=== PATIENT | male | born 1970 | race Caucasian/White ===

== ENCOUNTER 2018-06-27 17:07 | Inpatient (IN) | payer SELFPAY ==
[2018-06-27 17:33] LABS: #Basophils 0.1 thou/uL (0.0-0.2); #Eosinphils 0.2 thou/uL (0.0-0.7); #Lymphocytes 3.2 thou/uL (1.20-3.40); #Monocytes 0.6 thou/uL (0.11-0.59); #Neutrophils 6.1 thou/uL (1.40-6.50); %Eosinophils 2.2 % (0.0-10.0); %Lymphocytes 31.3 % (21.0-51.0); %Monocytes 5.6 % (0.0-10.0); %Neutrophils 59.9 % (42.0-75.0); Hemoglobin 16.1 g/dL (14.0-18.0); Mean Corpuscular HGB CONC 33.3 g/dL (32.0-36.0); Mean Corpuscular Hemoglobin 29.3 pg (27.0-31.0); Mean Corpuscular Volume 88.1 fL (78.0-98.0); Mean Platelet Volume 7.8 fL (7.4-10.4); Platelet Count 321 thou/uL (130-400); RBC Distribution Width 12.3 % (11.5-14.5); Red Blood Cell (RBC) Count 5.51 mill/uL (4.70-6.10); White Blood Cell (WBC) Count 10.2 thou/uL (4.8-10.8)
[2018-06-27 17:38] LABS: PTT 25.6 SEC (22.9-36.1)
[2018-06-27 17:48] LABS: ALT (SGPT) 22 U/L (8-55); AST (SGOT) 22 U/L (5-34); Albumin 3.8 g/dL (3.5-5.0); Alkaline Phosphatase 110 U/L (40-150); Anion Gap 11 mmol/L (10-20); BUN (Urea Nitrogen) 14 mg/dL (8.9-20.6); Bilirubin, Total 0.4 mg/dL (0.2-1.2); CK (CPK) 173 U/L (30-200); Calc. Creatinine Clearance 0 mL/min (70-130); Calcium 9.2 mg/dL (7.8-10.44); Carbon Dioxide 26 mmol/L (22-29); Chloride 104 mmol/L (98-107); Estimated GFR-MDRD 66; Globulin 2.9 g/dL (2.4-3.5); Glucose 190 mg/dL (70-105); Magnesium 1.9 mg/dL (1.6-2.6); Protein, Total 6.7 g/dL (6.0-8.3); Sodium 137 mmol/L (136-145)
--- NOTE | 2018-06-27 18:03 | CT ---
HEAD CT WITHOUT CONTRAST: Comparison: 08-07-05 History: Left leg weakness last night, starting at 1830 hours. Currently, the patient has a drift. Technique: Noncontrast head CT was performed from skull base to skull vertex. FINDINGS: No parenchymal hemorrhage. No extraaxial hematoma. No midline shift. The basilar cisterns are patent. Brain volume is age appropriate. Cortical krishnamurthy white matter differentiation is preserved. Ventricles and sulci are patent and symmetric. Calvarium is intact. Adequate aeration of the sinuses and mastoid air cells. IMPRESSION: No acute intracranial process. Results of study discussed with Dr. Daniels 06-27-18 at 5:23 p.m. POS: [facility]
[2018-06-27] MEDS ORDERED: Acetaminophen 325 MG TAB PO PRN (18:24)
[2018-06-27] MEDS ORDERED: Bisacodyl 5 MG TAB PO PRN ×2 (18:24→23:03)
[2018-06-27] MEDS ORDERED: Senokot S 8.6-50 MG TAB PO PRN ×2 (18:24→23:04)
[2018-06-27 19:32] LABS: Bilirubin Negative (Negative); Blood, Urine Negative (Negative); Clarity CLEAR (Clear); Glucose, Urine (Dipstick) Negative (Negative); Leukocyte Negative (Negative); Nitrite Negative (Negative); Protein, Urine (Dipstick) Negative (Neg-Trace); Specific Gravity, Urine 1.005 (1.002-1.036); Urobilinogen 0.2 mg/dL (0.2-1.0)
[2018-06-27] MEDS ORDERED: Dextrose 5% in Water 1,000 ML IV PRN ×2 (19:38→23:04)
[2018-06-27] MEDS ORDERED: HumaLOG 300 UNITS/3 ML VIAL SC PRN (19:38)
[2018-06-27] MEDS ORDERED: Dextrose 50% Abboject 50 ML SYRINGE SLOW IVP PRN ×2 (19:38→23:04)
[2018-06-27] MEDS ORDERED: Atorvastatin Calcium 40 MG TAB PO SCH ×2 (21:00→23:15)
[2018-06-27] MEDS ORDERED: ALPRAZolam 0.5 MG TAB PO PRN ×2 (21:23→23:04)
[2018-06-27] MEDS: HumaLOG 300 UNITS/3 ML VIAL SC PRN (23:11)
--- NOTE | 2018-06-27 23:52 | HP ---
CHIEF COMPLAINT: Left-sided weakness. HISTORY OF PRESENT ILLNESS: The patient is a 48-year-old, who is a type 1 diabetic, has a history of hypertension, who presents to the hospital with left-sided weakness that started at 6:30 yesterday. The patient stated that he was at his girlfriend's house when he kind of started noticing his left lower extremity heaviness and while he was driving, he started having left upper extremity heaviness. The patient stated that he got home, had difficulty getting into his home and initially thought that the left-sided weakness was most likely musculoskeletal versus a pinched nerve, so he did not really do anything about it. The patient stated that his left-sided heaviness and weakness progressed, so he came into the ER for further evaluation. The patient denies any fevers or chills, any nausea, vomiting, or diarrhea. The patient's mother was at the bedside, stated that she spoke with him at 11:30 last night. According to her, his speech was fine. The patient stated that he came into the ER for further evaluation today. PAST MEDICAL HISTORY: Diabetes type 1, hypertension, and some mild hyperlipidemia. SOCIAL HISTORY: He denies any alcohol use, drug use. He has secondhand smoking exposure. He is a full code. Lives alone. FAMILY HISTORY: Mother has heart problems. Father also had heart problems, who . PAST SURGICAL HISTORY: He has had a hernia repair. MEDICATIONS: The patient does not currently know his medication list. ALLERGIES: HE HAS NO KNOWN DRUG ALLERGIES. REVIEW OF SYSTEMS: All negative except for the ones mentioned above in the HPI. PHYSICAL EXAMINATION: VITAL SIGNS: Vital signs are the following; blood pressure 170/80. His temperature is 98.1. His heart rate is 80, respirations 18, and 99% on room air. GENERAL: He is awake, alert, and oriented x3. Does not appear to be in any distress. CV: S1 and S2 present. No murmurs, rubs, or gallops. LUNGS: Clear to auscultation. No rhonchi or wheezes noted. HEENT: He does have missing teeth. Normocephalic, atraumatic. NECK: No lymphadenopathy noted. ABDOMEN: Soft and nontender. Bowel sounds present x2. EXTREMITIES: No edema. Pedal pulses are present x2. NEUROLOGIC: He has significant weakness of the left upper extremity and left lower extremity. Sensation is intact to bilateral upper and bilateral lower. [id number] is intact on the right hand. The patient is unable to do it from the left. [id number], again he is able to move his right lower extremity, but is unable to move the left lower extremity. SKIN: No cuts, lesions, or bruises noted. LABORATORY WORK: As of the following; WBC of 10.2, hemoglobin of 16.1, hematocrit of 48.5, and platelets of 321. Chemistry; sodium of 137, potassium of 4.0, BUN of 14, creatinine of 1.17, glucose of 190. Troponin x1 is negative. TSH is 0.493. Urine is normal. EKG; no significant changes. ASSESSMENT AND PLAN: The patient is a very pleasant 48-year-old male, who presents to the hospital with left-sided weakness. 1. Stroke/transient ischemic attack. The patient has significant left-sided weakness. His CT initially did not indicate any acute abnormalities. We will get MRI brain, also we will get carotid Dopplers and echocardiogram and we will get Neurology consult. The patient does take 325 of aspirin. We will put him on Plavix 75, also put him on a statin and also check his cholesterol level in the morning. 2. Diabetes. He is a type 1 diabetic. We will check sliding-scale insulin before meals and at bedtime and also put him on sliding scale. We will continue his home medications. 3. Hypertension. I will not be aggressive with his high blood pressure given his recent weakness and stroke. Job ID: [id number]
[2018-06-28] MEDS ORDERED: Pregabalin 50 MG CAP PO SCH ×4 (03:30→09:00)
[2018-06-28] MEDS: HumaLOG 300 UNITS/3 ML VIAL SC PRN ×4 (06:19→21:27)
[2018-06-28] MEDS: Acetaminophen 325 MG TAB PO PRN ×2 (08:01→16:27)
[2018-06-28] MEDS: Enoxaparin Sodium 40 MG/0.4 ML SYRINGE SC SCH (08:02)
[2018-06-28] MEDS: Aspirin 325 mg Enteric Coated Tablet PO SCH (08:03)
[2018-06-28] MEDS ORDERED: Enoxaparin Sodium 40 MG/0.4 ML SYRINGE SC SCH (09:00)
[2018-06-28] MEDS ORDERED: Aspirin 325 mg Enteric Coated Tablet PO SCH (09:00)
[2018-06-28] MEDS ORDERED: Insulin Glargine 10 UNITS in Pre-Filled Syringe 1 EACH SC SCH (09:00)
--- NOTE | 2018-06-28 11:22 | CON ---
DATE OF CONSULTATION: 06/28/2018 CONSULTING PHYSICIAN: Hospitalist Service. IMPRESSION: 1. Probable small vessel stroke with left-sided weakness. 2. Diabetes. 3. Hypertension. 4. Aspirin failure. PLAN: 1. Add Plavix. 2. Add a statin. 3. Carotid ultrasound. 4. Echocardiogram. 5. Probable outpatient therapy given his lack of funding. HISTORY OF PRESENT ILLNESS: Mr. Layne is a 48-year-old man, who reports developing left-sided weakness 2 days ago. He did not seek medical attention right away. He subsequently presented to the emergency room yesterday. He had a CT scan of the brain done, which did not reveal any evidence of any acute ischemic changes. His laboratory studies were unremarkable other than elevated blood glucose. He denies any tobacco use. PAST MEDICAL HISTORY: As listed above. ALLERGIES: NONE REPORTED. SOCIAL HISTORY: No tobacco or alcohol use. FAMILY HISTORY: Noncontributory. MEDICATION LIST: Reviewed. REVIEW OF SYSTEMS: Negative for headache, nausea, vomiting, vertigo, double vision, blurred vision, lateralized numbness, chest pain, or shortness of breath. Positive for tingling in his feet. PHYSICAL EXAMINATION: VITAL SIGNS: Blood pressure 142/83, pulse 78, respirations 16, and temperature 98. HEENT: Pupils are equal and reactive. Conjunctivae clear. Oropharynx clear. NECK: Supple. No lymphadenopathy. EXTREMITIES: No cyanosis, clubbing, or edema. NEUROLOGIC: He was alert and cooperative. Speech is fluent and clear. Cranial nerve exam showed a subtle left facial flattening. Sensation was intact bilaterally. Motor exam showed only partial antigravity strength in the left arm and leg. Distal movement was more impaired with minimal hand movement. Sensation was intact to light touch. Plantar response was upgoing on the left, downgoing on the right. Gait was not tested. No abnormal movements were seen. LABORATORY DATA: EKG shows a sinus rhythm. Laboratory studies were as noted above. SUMMARY: This is a middle-aged man, who presents with weakness on the left side without sensory deficits suggestive of a small vessel stroke. I would advance his antiplatelet therapy and add a statin. Hopefully, he will make a quick recovery. Job ID: [id number]
[2018-06-28] MEDS ORDERED: Dextrose 5% in Water 1,000 ML IV PRN (11:58)
[2018-06-28] MEDS ORDERED: Dextrose 50% Abboject 50 ML SYRINGE IVP PRN (11:58)
--- NOTE | 2018-06-28 12:01 | MRI ---
MRI BRAIN WITHOUT CONTRAST: HISTORY: Left leg weakness. CVA. COMPARISON: None. TECHNIQUE: Brain MRI is performed without intravenous Gadolinium administration. Multisequential, multiplanar i maging is performed. FINDINGS: No hemorrhage on the axial gradient echo sequence. Calvarium has a normal T1 marrow signal intensity. Midline brain parenchymal structures are unremark able. Central arterial flow voids are maintained. There is a small focus of restricted diffusion in volving the lateral aspect of the right thalamus and posterior limb of the right internal capsule. T here is associated t2 and STIR hyperintensity. No additional areas of restricted diffusion. No parenchymal mass, mass effect, or midline shift. Brain volume, slightly less than expected for pa tient's age. Cortical krishnamurthy-white matter differentiation is preserved. T2 and FLAIR white matter hyperintensities due to chronic small-vessel ischemic changes are noted. Adequate aeration of the sinuses and mastoid air cells. IMPRESSION: Small infarct involving the posterior limb of the right internal capsule and the lateral aspect of th e right thalamus. POS: [facility]
--- NOTE | 2018-06-28 20:59 | PDOC.PN ---
- Subjective Encounter Start Date: 06/28/18 Encounter Start Time: 10:15 Subjective: pt up in bed still has left side weakness - Objective Resuscitation Status - Order Detail: 06/27/18 18:24 Resuscitation Status Routine Resuscitation Status: FULL: Full Resuscitation Vital Signs & Weight: Vital Signs (12 hours) Temp Pulse Pulse Pulse Resp BP BP 06/28/18 16:00 97.9 F 78 14 06/28/18 12:00 98.4 F 88 18 06/28/18 09:38 90 90 137/98 H 147/85 H 06/28/18 09:25 90 85 137/98 H 139/85 BP Pulse Ox 06/28/18 16:00 157/86 H 95 06/28/18 12:00 148/97 H 95 06/28/18 09:38 06/28/18 09:25 Weight Weight 194 lb 8 oz I&O: 06/27/18 06/28/18 06/29/18 06:59 06:59 06:59 Intake Total 1313 Balance 1313 Result Diagrams: 06/27/18 17:23 06/27/18 17:23 Additional Labs: Accuchecks 06/28/18 06/28/18 06/28/18 16:42 10:37 05:51 POC Glucose 286 H 297 H 269 H 06/27/18 06/27/18 21:53 17:17 POC Glucose 322 H 181 H Phys Exam - Physical Examination Respiratory: no wheezing, no rales, no rhonchi, wheezing present, clear to auscultation bilateral Cardiovascular: RRR, no significant murmur, no rub, gallop, irregular Gastrointestinal: soft, non-tender, no distention, positive bowel sounds Musculoskeletal: no edema, pulses present, edema present left sided weakness Dx/Plan (1) Stroke Code(s): I63.9 - CEREBRAL INFARCTION, UNSPECIFIED Status: Acute (2) Diabetes Code(s): E11.9 - TYPE 2 DIABETES MELLITUS WITHOUT COMPLICATIONS Status: Acute - Plan will continue asa/statin -: will continue his insulin -: mri pending -: pt/ot eval * . Review of Systems - Review of Systems Respiratory: negative: Cough, Dry, Shortness of Breath, Hemoptysis, SOB with Excertion, Pleuritic Pain, Sputum, Wheezing Cardiovascular: negative: chest pain, palpitations, orthopnea, paroxysmal nocturnal dyspnea, edema, light headedness, other Gastrointestinal: negative: Nausea, Vomiting, Abdominal Pain, Diarrhea, Constipation, Melena, Hematochezia, Other - Medications/Allergies Allergies/Adverse Reactions: Allergies Allergy/AdvReac Type Severity Reaction Status Date / Time No Known Allergies Allergy Verified 06/27/18 22:16 Medications: Current Medications Acetaminophen (Tylenol) 650 mg PO Q4H PRN PRN Reason: Headache/Fever/Mild Pain (1-3) Last Admin: 06/28/18 16:27 Dose: 650 mg Alprazolam (Xanax) 0.5 mg PO BIDPRN PRN PRN Reason: Anxiety Last Admin: 06/27/18 23:11 Dose: 0.5 mg Aspirin (Ecotrin) 325 mg PO DAILY [facility] Last Admin: 06/28/18 08:03 Dose: 325 mg Atorvastatin Calcium (Lipitor) 40 mg PO HS [facility] Bisacodyl (Dulcolax) 10 mg PO DAILYPRN PRN PRN Reason: Constipation Bupropion HCl (Wellbutrin) 100 mg PO BID [facility] Dextrose/Water (Dextrose 50%) 25 gm IVP PRN PRN PRN Reason: HYPOGLYCEMIA PROTOCOL Enoxaparin Sodium (Lovenox) 40 mg SC 0900 [facility] Last Admin: 06/28/18 08:02 Dose: 40 mg Glucagon (Glucagon) 1 mg IM PRN PRN PRN Reason: HYPOGLYCEMIA PROTOCOL Insulin Glargine 25 units/ (Miscellaneous Medication) 0.25 mls @ 0 mls/hr SC HS [facility] Insulin Glargine 25 units/ (Miscellaneous Medication) 0.25 mls @ 0 mls/hr SC QAM [facility] Dextrose/Water (D5w) 1,000 mls @ 0 mls/hr IV INF PRN PRN Reason: HYPOGLYCEMIA PROTOCOL Insulin Human Lispro (Humalog) 0 units SC .MODERATE SLIDING SC PRN; Protocol PRN Reason: MODERATE SLIDING SCALE Last Admin: 06/28/18 19:02 Dose: 6 unit Lisinopril (Zestril) 10 mg PO DAILY [facility] Pneumococcal Polyvalent Vaccine (Pneumovax 23) 0.5 ml IM .ONCE ONE Stop: 06/29/18 09:01 Pregabalin (Lyrica) 100 mg PO BID [facility] Senna/Docusate Sodium (Senokot S) 2 tab PO BIDPRN PRN PRN Reason: Constipation Sodium Chloride (Flush - Normal Saline) 10 ml IVF PRN PRN PRN Reason: Saline Flush
[2018-06-28] MEDS ORDERED: Insulin Glargine 25 UNITS in Pre-Filled Syringe 1 EACH SC SCH (21:00)
[2018-06-28] MEDS ORDERED: Atorvastatin Calcium 40 MG TAB PO SCH (21:00)
[2018-06-28] MEDS: Pregabalin 50 MG CAP PO SCH (21:20)
[2018-06-28] MEDS: buPROPion HCl 100 MG TAB PO SCH (21:21)
[2018-06-29] MEDS ORDERED: Lisinopril 10 MG TAB PO SCH (09:00)
[2018-06-29] MEDS ORDERED: Insulin Glargine 25 UNITS in Pre-Filled Syringe 1 EACH SC SCH (09:00)
[2018-06-29] MEDS: Acetaminophen 325 MG TAB PO PRN (09:07)
[2018-06-29] MEDS: buPROPion HCl 100 MG TAB PO SCH (09:08)
[2018-06-29] MEDS: Pregabalin 50 MG CAP PO SCH (09:08)
[2018-06-29] MEDS: Aspirin 325 mg Enteric Coated Tablet PO SCH (09:09)
[2018-06-29] MEDS: Enoxaparin Sodium 40 MG/0.4 ML SYRINGE SC SCH (09:10)
[2018-06-29] MEDS ORDERED: HumaLOG 300 UNITS/3 ML VIAL SC PRN (11:45)
[2018-06-29 11:54] VITALS: BP 122/75; TEMP 97.8
--- NOTE | 2018-06-29 13:39 | PDOC.PN ---
- Subjective Encounter Start Date: 06/29/18 Encounter Start Time: 13:37 Patient seen and examined, no new issues or complaints, no family at bedside, all questions answered. - Objective Resuscitation Status - Order Detail: 06/27/18 18:24 Resuscitation Status Routine Resuscitation Status: FULL: Full Resuscitation Vital Signs & Weight: Vital Signs (12 hours) Temp Pulse Resp BP BP Pulse Ox 06/29/18 11:53 97.8 F 83 18 122/75 95 06/29/18 09:09 120/73 06/29/18 08:10 95 06/29/18 07:39 97.4 F L 82 18 120/73 93 L 06/29/18 03:20 98.1 F 79 16 135/88 97 Weight Weight 194 lb 8 oz I&O: 06/28/18 06/29/18 06/30/18 06:59 06:59 06:59 Intake Total 1313 Balance 1313 Result Diagrams: 06/27/18 17:23 06/27/18 17:23 Additional Labs: Accuchecks 06/29/18 06/29/18 06/28/18 10:59 05:41 21:16 POC Glucose 457 H 84 379 H 06/28/18 16:42 POC Glucose 286 H Phys Exam - Physical Examination Constitutional: NAD HEENT: PERRLA, moist MMs, sclera anicteric Neck: no nodes, no JVD, supple, full ROM Respiratory: no wheezing, no rales, no rhonchi Cardiovascular: RRR, no significant murmur, no rub Gastrointestinal: soft, non-tender, no distention, positive bowel sounds Musculoskeletal: no edema, pulses present left sided hemiparesis AAO x 3 Dx/Plan (1) Hypertension Code(s): I10 - ESSENTIAL (PRIMARY) HYPERTENSION Status: Acute (2) Diabetes Code(s): E11.9 - TYPE 2 DIABETES MELLITUS WITHOUT COMPLICATIONS Status: Acute (3) Stroke Code(s): I63.9 - CEREBRAL INFARCTION, UNSPECIFIED Status: Acute - Plan * start plavix * start humalog 5 units TID with meals, increase sliding scale to high dose * DC plans to SNF or inpatient rehab or home with home health care if possible, patient is uninsured so this may be a challenge, if unable to qualify for any of these will likely plan for DC in AM * case and plan d/w patient at length, he understood and agreed with this plan.
--- NOTE | 2018-06-29 15:08 | PDOC.EVN ---
Event Note - Event Note Event Note: DC SUMMARY #[id number]
[2018-06-29] MEDS ORDERED: HumaLOG 300 UNITS/3 ML VIAL SC SCH (17:00)
--- NOTE | 2018-06-29 21:27 | DIS ---
DATE OF ADMISSION: 06/27/2018 DATE OF DISCHARGE: 06/29/2018 ADMITTING DIAGNOSES: 1. Left-sided facial weakness and left-sided weakness. 2. Diabetes mellitus. 3. Hypertension. 4. Hyperlipidemia. DISCHARGE DIAGNOSES: 1. Left-sided weakness, status post small infarct in the posterior limb of the internal capsule and lateral aspect of the right thalamus. 2. Diabetes mellitus. 3. Hypertension. 4. Hyperlipidemia. HOSPITAL COURSE: This is a 48-year-old male, who was admitted to the hospitalist team, seen by Internal Medicine as well as Neurology. The patient was found to have a stroke as stated above in the discharge diagnoses in the region of the posterior limb of the right internal capsule as well as lateral aspect of the right thalamus. The patient had an echocardiogram done, which was normal and also had brain MRI done and brain CT done. The patient was evaluated by Internal Medicine and Neurology. The patient was already on aspirin. Thus, he was started on Plavix on top of the aspirin and also atorvastatin. The patient was discharged to home with home health care with aspirin 325 mg daily, Plavix 75 mg daily, and atorvastatin 40 mg daily. The patient was given a 30-tablet script for tramadol 500 mg p.o. q.6 hours p.r.n. pain. Home health care was set up. The patient is to follow up with home health care for further management and care. Dietary advice given as well as health and lifestyle changes advice were given. Case and plan discussed with the patient at length. At point of time of discharge, he was stable and ready to go home. He understood and agreed with this plan. DISPOSITION: Home with home health care. MEDICATIONS: See MAR. ACTIVITY: As tolerated with assistance as needed. DIET: Vegan diet. CONDITION: Stable. FOLLOWUP: Follow up with PCP in 1 week for further management and care. Once again, case and plan discussed with the patient at length. He understood and agreed with this plan. Job ID: [id number]
[2018-06-30] MEDS ORDERED: Clopidogrel Bisulfate 75 MG TAB PO SCH (09:00)
== END 2018-06-29 17:52 | disposition home health service (06) | DRG 65 ==
LOC: ERS 17:07 → 2SE 18:41 → ERS 20:29
PROVIDERS: ADMIT Internal Medicine; ATTEND Internal Medicine
DX: I63.9 Cerebral infarction, unspecified (principal); G81.94 Hemiplegia, unspecified affecting left nondominant side; E10.9 Type 1 diabetes mellitus without complications; I10 Essential (primary) hypertension; E78.5 Hyperlipidemia, unspecified; Z79.82 Long term (current) use of aspirin
CPT/HCPCS: 36416; 70450; 70496; 70498; 70551; 80053; 81003; 82550; 83735; 84443; 85025; 85610; 85730; 93005; 93306; G8978-GP-CK; G8979-GP-CH; G8987-GO-CL; G8988-GO-CJ; G8996-GN-CI; G8997-GN-CI; J1650